=== PATIENT | female | born 1955 | race Caucasian/White ===

== ENCOUNTER 2017-12-25 13:40 | Emergency (ER) | payer MEDICAID ==
[~2017-12-25] VITALS: Ht 157.5 cm; Wt 72.6 kg
[2017-12-25] MEDS ORDERED: BENADRYL25 MG PO (15:54)
[2017-12-25] MEDS ORDERED: EPIN0.3P IM (15:54)
== END 2017-12-25 16:13 | disposition home or self-care (01) ==
LOC: ED 13:40
DX: T63.441A Toxic effect of venom of bees, accidental (unintentional), initial encounter (principal); Z91.030 Bee allergy status
CPT/HCPCS: 71045; 96372; 96374; 99284; J1100; J1200